=== PATIENT | male | born 1995 | race Caucasian/White ===

== ENCOUNTER 2019-03-06 08:00 | Emergency (ER) | payer BC, OTHER ==
[2019-03-06 08:22] VITALS: BP 130/76
--- NOTE | 2019-03-06 08:36 | UC ---
FLU HPI - HPI Summary HPI Summary: Pt present with c/o cough, body aches, fever, chills, nasal congestion, ST X 3 days. Pt states cough has worsened in the last 24 hours. - History of Current Complaint Chief Complaint: UCGeneralIllness Stated Complaint: CHILLS/SWEATS HEADACHE CONGESTION COUGH Time Seen by Provider: 03/06/19 08:14 Hx Obtained From: Patient Onset/Duration: Gradual Onset, Lasting Days, Still Present, Worse Since - onset Severity Currently: Mild Severity Initially: Mild Pain Intensity: 2 Associated Signs & Symptoms: Positive: Fever, Myalgia, Cough, Sore Throat, Nasal Congestion Related Hx: Possible Flu/Infectious Exposure - Risk Factors Influenza Risk Factors: Negative - Allergy/Home Medications Allergies/Adverse Reactions: Allergies Allergy/AdvReac Type Severity Reaction Status Date / Time cefprozil [From Cefzil] Allergy Fatigue Verified 03/06/19 08:23 PMH/Surg Hx/FS Hx/Imm Hx Previously Healthy: Yes - Surgical History Surgical History: None - Family History Known Family History: Positive: Cardiac Disease - Social History Occupation: Employed Full-time Lives: With Family Alcohol Use: Occasionally Substance Use Type: None Smoking Status (MU): Current Some Day Smoker Type: Cigars Amount Used/How Often: very rare Have You Smoked in the Last Year: Yes - Immunization History Most Recent Tetanus Shot: UP TO DATE Vaccination Up to Date: Yes Review of Systems All Other Systems Reviewed And Are Negative: Yes Constitutional: Positive: Fever, Chills, Fatigue Skin: Positive: Negative Eyes: Positive: Negative ENT: Positive: Sore Throat, Sinus Congestion Respiratory: Positive: Cough Cardiovascular: Positive: Negative Gastrointestinal: Positive: Negative Genitourinary: Positive: Negative Motor: Positive: Negative Neurovascular: Positive: Negative Musculoskeletal: Positive: Myalgia Neurological: Positive: Negative Psychological: Positive: Negative Is Patient Immunocompromised?: No Physical Exam Triage Information Reviewed: Yes Appearance: Ill-Appearing Vital Signs: Initial Vital Signs Temp 99.7 F 03/06/19 08:17 Pulse 103 03/06/19 08:17 Resp 18 03/06/19 08:17 BP 130/76 03/06/19 08:17 Pulse Ox 96 03/06/19 08:17 Vital Signs Reviewed: Yes Eye Exam: Normal ENT: Positive: Pharyngeal erythema, Nasal congestion, Hoarse voice Dental Exam: Normal Neck exam: Normal Respiratory: Positive: Normal breath sounds, No respiratory distress Cardiovascular: Positive: Tachycardia Musculoskeletal Exam: Normal Neurological Exam: Normal Psychological Exam: Normal Skin Exam: Normal Flu Course/Dx - Differential Dx/Diagnosis Differential Diagnosis/HQI/PQRI: Influenza, Upper Respiratory Infection Provider Diagnosis: Viral syndrome Discharge ED - Sign-Out/Discharge Documenting (check all that apply): Patient Departure All imaging exams completed and their final reports reviewed: No Studies - Discharge Plan Condition: Stable Disposition: HOME Prescriptions: Albuterol HFA INHALER* [Ventolin HFA Inhaler*] 1 - 2 puff INH Q4H PRN #1 mdi PRN Reason: Sob/Wheezing Benzonatate CAP* [Tessalon 100 MG CAP*] 100 mg PO Q8H PRN #30 cap PRN Reason: Cough Guaifenesin/Pseudoephedrne HCl [Mucinex D ER 600-60 mg Tablet] 1 each PO Q12H # 10 tab.er.12h predniSONE TAB* [Deltasone 20 MG TAB*] 60 mg PO DAILY #12 tab Patient Education Materials: Acute Bronchitis (ED) Referrals: Edilson Sierra [Primary Care Provider] - If Needed Additional Instructions: Please follow up with your PCP as needed. If your symptoms worsen, please seek care at the closest emergency room as soon as possible. - Billing Disposition and Condition Condition: STABLE Disposition: Home
[2019-03-06 08:42] LABS: Influenza A Molecular NEGATIVE (Negative); Influenza B Molecular NEGATIVE (Negative)
== END 2019-03-06 09:04 | disposition home or self-care (01) ==
LOC: UCCORT 08:00
DX: R05 Cough (principal); R51 Headache; M79.10 Myalgia, unspecified site; R68.83 Chills (without fever); R09.81 Nasal congestion; F17.290 Nicotine dependence, other tobacco product, uncomplicated; R53.83 Other fatigue; J02.9 Acute pharyngitis, unspecified; Z88.1 Allergy status to other antibiotic agents
CPT/HCPCS: 99202; G0463